=== PATIENT | female | born 1995 ===

== ENCOUNTER 2017-07-06 07:30 | Day surgery (SDC) | payer OTHER ==
[2017-06-28 08:47] VITALS: BMI 17.8
[2017-07-06] MEDS ORDERED: Lactated Ringer's 1,000 ML IV ONE ×2 (07:45→08:40)
[2017-07-06] MEDS ORDERED: Midazolam 2 MG/2 ML VIAL ONE (07:45)
[2017-07-06] MEDS ORDERED: Bupivacaine HCl 0.25% PF (10 ml) Inj ONE (07:45)
[2017-07-06] MEDS ORDERED: Propofol 10 mg/ml Inj (20 ML) ONE (07:45)
[2017-07-06] MEDS ORDERED: cefOXitin IV 1 gm in Dextrose 0 GM/0 ML BAG IVPB ONE (07:45)
[2017-07-06] MEDS ORDERED: Rocuronium 10 mg/ml (5 ml) ONE (07:46)
[2017-07-06] MEDS ORDERED: cefOXitin IV 2 gm in Dextrose 2 GM/50 ML BAG IVPB ONE (07:55)
[2017-07-06] MEDS ORDERED: Neostigmine Methylsulfate 3mg/3ml Syringe IV ONE (08:36)
[2017-07-06] MEDS ORDERED: HYDROmorphone 0.5 mg/0.5 ml ISec IVP PRN (08:54)
[2017-07-06 10:06] VITALS: O2SAT 99
[2017-07-06 11:45] VITALS: BP 100/52; PULSE 89; RESP 18; TEMP 98.6
--- NOTE | 2017-07-07 09:18 | OP ---
PROCEDURE DATE: 07/06/2017 PREOPERATIVE DIAGNOSES: 1. Left dermoid cyst. 2. Pelvic pain. 3. Menorrhagia. POSTOPERATIVE DIAGNOSES: 1. Endometriosis. 2. Left endometrioma. 3. Right hydrosalpinx. FINDINGS: Right perifimbrial adhesions with a right mild hydrosalpinx. The patient also has extensive posterior cul-de-sac endometriotic implant. She has 3-cm left endometrioma with chocolate material, which was resected. Right ovary is normal. Uterus is normal size. The patient endometrial curettage. SURGEON: Dr. David Tanner. PROCEDURE: 1. Laparoscopy. 2. Left ovarian cystectomy. 3. Fulguration of endometriosis. 4. Fimbrioplasty. 5. D and C of the uterus. ANESTHESIA: General. ESTIMATED BLOOD LOSS: Less than 1 mL. COMPLICATIONS: None. DESCRIPTION OF PROCEDURE: After the risks, benefits and alternatives of the planned procedures including, but not limited to infection, hemorrhage, deep vein thrombosis, atelectasis, pneumonia, pulmonary embolism, damage to bladder, damage to the ureter, renal insufficiency, renal failure, wound infection, wound dehiscence, incisional hernia, keloid formation, damage to large and small intestine, damage to the inferior vena cava and the aorta requiring extensive repair, anesthesia complications, electrolyte imbalance, possibility of , fluid overload, cerebral edema, embolism, and other complications that were discussed, but are not listed above have been explained to the patient and all her questions answered. Informed consent was obtained. The patient was taken to the operating room in a stable condition. Under a suitable level of general anesthesia, she was prepped and draped in a sterile fashion after having been placed in a dorsal lithotomy position. A 5-mm puncture site was made through the umbilicus through which a 5 mm puncture site was made through the umbilicus through which a Verses needle was inserted and pneumoperitoneum was relieved which was created. The Verses needle was removed and replaced by 5-mm trocar and sleeve. A 5-mm puncture site was made 3 finger breadths above the pubic symphysis through which 5-mm trocar and sleeve was inserted and another 5-mm puncture site was made in the through which a 5-mm trocar and sleeve was inserted. Elliptical incision was made over the left ovarian cyst, and the cyst line was then removed. Fluid from the cyst was drained and submitted for cytology. Posterior cul-de-sac endometriotic implant was then fulgurated. Right perifimbrial adhesions were released using Endoshear users to perform a fimbrioplasty. At the end of the procedure, peritoneal cavity was irrigated using copious amounts of saline. The saline was evacuated. Suprapubic and right sleeves were removed under laparoscopic guidance, abdomen was deflated of all carbon dioxide and the umbilicus sleeve was removed under laparoscopic guidance. Skin incisions were then closed using 4-0 Monocryl. Sponge, needle and instrument counts were correct x2. There were no complications. David Tanner MD
== END 2017-07-06 13:05 | disposition home or self-care (01) ==
LOC: C.SDS 07:30
PROVIDERS: ATTEND Obstetrics & Gynecology Reproductive Endocrinology
DX: D27.1 Benign neoplasm of left ovary (principal); N80.3 Endometriosis of pelvic peritoneum; N70.11 Chronic salpingitis
CPT/HCPCS: 36415; 58120; 58662; 58672; 86850; 86900; 88104; 88305; J0694; J1100; J1170; J2250; J2704; J2710; J3010; J7120

== ENCOUNTER 2017-09-25 17:21 | Emergency (ER) | payer OTHER ==
[2017-09-25 17:21] VITALS: BMI 17.8
[2017-09-25 18:05] LABS: RBC URINE 1 /hpf (0-3); URINE BACTERIA OCC (<OCC); URINE BILIRUBIN NEGATIVE (NEGATIVE); URINE BLOOD NEGATIVE (NEGATIVE); URINE COLOR Yellow (YELLOW); URINE GLUCOSE (UA) NORMAL (Normal); URINE KETONE NEGATIVE (NEGATIVE); URINE LEUKOCYTE ESTERASE NEG Leu/uL (Negative); URINE PROTEIN 1+ mg/dL (NEGATIVE); WBC URINE 2 /hpf (0-5)
--- NOTE | 2017-09-25 18:25 | C.PDOC ---
Time Seen by Provider: 09/25/17 17:42 Chief Complaint (Nursing): Female Genitourinary Past Medical History - Medical History PMH: Asthma, Gastritis, Hiatal Hernia Surgical History: Appendectomy (2011), Endoscopy Family History: States: Unknown Family Hx - Social History Hx Tobacco Use: No Hx Alcohol Use: No Hx Substance Use: No - Immunization History Hx Tetanus Toxoid Vaccination: Yes Hx Influenza Vaccination: No Hx Pneumococcal Vaccination: No Disposition - Disposition Referrals: David Tanner MD [Staff Provider] - Disposition: HOME/ ROUTINE Disposition Time: 18:23 Condition: STABLE Additional Instructions: Ms. Reyna, thank you for letting us take care of you today. Return to the ER if your symptoms worsen, or if any problems. Take the medication listed below as prescribed. Follow up with your vibration technician next week for a re-evaluation. We will contact you if any of your culture results/test results are positive. Prescriptions: Ibuprofen [Motrin] 1 tab PO TID PRN #30 tab PRN Reason: Pain Instructions: Pelvic Pain (ED), Vulvovaginal Candidiasis (ED) Forms: [employer] (Citizen [place]), General Discharge Instructions Print Language: MONGOLIAN - POA Present On Arrival: None - Clinical Impression Clinical Impression: Pelvic pain, Yeast infection
[2017-09-25 18:26] VITALS: BP 117/81; RESP 18; TEMP 97.9; O2SAT 100
[2017-09-25 18:30] VITALS: PULSE 107
== END 2017-09-25 18:42 | disposition home or self-care (01) ==
LOC: C.ER 17:21
DX: R10.2 Pelvic and perineal pain (principal); B37.9 Candidiasis, unspecified

== ENCOUNTER 2018-01-08 09:59 | Emergency (ER) | payer OTHER ==
[2018-01-08 10:00] VITALS: BMI 17.8
[2018-01-08 10:12] VITALS: TEMP 97.8; O2SAT 100
[2018-01-08 11:04] LABS: SQUAMOUS EPITHIAL 4 /hpf (0-5); URINE BILIRUBIN NEGATIVE (NEGATIVE); URINE BLOOD NEGATIVE (NEGATIVE); URINE CLARITY Hazy (Clear); URINE COLOR Yellow (YELLOW); URINE GLUCOSE (UA) NORMAL (Normal); URINE LEUKOCYTE ESTERASE NEG Leu/uL (Negative); URINE PROTEIN NEGATIVE (NEGATIVE); URINE UROBILINOGEN NORMAL mg/dL (0.2-1.0)
--- NOTE | 2018-01-08 11:07 | C.PDOC ---
History Of Present Illness 22 year old female, currently 9 weeks (), presents to the ED for evaluation of suprapubic discomfort, nausea and dysuria which began yesterday. Patient also admits she has thin, clear vaginal discharge which has been present throughout the course of her . She was seen by her refractory repairer; most recent visit was last week and her ultrasound was "normal". Patient denies fever, vomiting, diarrhea, hematuria, vaginal bleeding. Time Seen by Provider: 01/08/18 10:22 Chief Complaint (Nursing): Abdominal Pain History Per: Patient History/Exam Limitations: no limitations Onset/Duration Of Symptoms: Hrs Current Symptoms Are (Timing): Still Present Severity: Mild Location Of Pain/Discomfort: Suprapubic Radiation Of Pain To:: None Quality Of Discomfort: "Pain" Associated Symptoms: Nausea. denies: Fever, Vomiting, Diarrhea Additional History Per: Patient Abnormal Vaginal Bleeding: No Past Medical History Reviewed: Historical Data, Nursing Documentation, Vital Signs Vital Signs: Last Vital Signs Temp 97.8 F 01/08/18 10:11 Pulse 76 01/08/18 14:02 Resp 20 01/08/18 14:02 BP 100/64 01/08/18 14:02 Pulse Ox 100 01/08/18 14:02 - Medical History PMH: Asthma, Gastritis, Hiatal Hernia Surgical History: Appendectomy (2011), Endoscopy Family History: States: Diabetes - Social History Hx Tobacco Use: No Hx Alcohol Use: No Hx Substance Use: No - Immunization History Hx Tetanus Toxoid Vaccination: Yes Hx Influenza Vaccination: No Hx Pneumococcal Vaccination: No Review Of Systems Except As Marked, All Systems Reviewed And Found Negative. Constitutional: Negative for: Fever, Chills Cardiovascular: Negative for: Chest Pain Respiratory: Negative for: Shortness of Breath Gastrointestinal: Positive for: Nausea, Abdominal Pain (suprapubic ). Negative for: Vomiting, Diarrhea Genitourinary: Positive for: Vaginal Discharge (mild thin whitish/clear ( chronci throughout )). Negative for: Vaginal Bleeding Skin: Negative for: Rash Physical Exam - Physical Exam Appears: Well, Non-toxic, No Acute Distress Skin: Normal Color, Warm, Dry Eye(s): bilateral: Normal Inspection Oral Mucosa: Moist Neck: Supple Cardiovascular: Rhythm Regular Respiratory: Normal Breath Sounds, No Rales, No Rhonchi, No Wheezing Gastrointestinal/Abdominal: Normal Exam, Bowel Sounds, Soft, No Tenderness Back: Normal Inspection, No CVA Tenderness Extremity: Normal ROM Neurological/Psych: Oriented x3 ED Course And Treatment - Laboratory Results Result Diagrams: 01/08/18 11:46 01/08/18 11:46 O2 Sat by Pulse Oximetry: 100 (on RA ) Pulse Ox Interpretation: Normal - CT Scan/US transvaginal US Other Rad Studies (CT/US): Read By Radiologist, Radiology Report Reviewed CT/US Interpretation: Accession No. : [id number]. Patient Name / ID : ED Silva / [id number]. Exam Date : 01/08/2018 12:26:00 ( Approved ). Study Comment : Sex / Age : F / 22Y. Creator : Amalia Mata MD. Dictator : Amalia Mata MD. Transition Lead : Brake Repair Mechanic : Amalia Mata MD. Approver2 : Report Date : 01/08/2018 13:41:35. My Comment : . PROCEDURE: OB Pelvic Ultrasound. HISTORY: Pelvic pain. COMPARISON: None available. FINDINGS: UTERUS: Single Live intrauterine gestation. CRL measures 3.35 cm equivalent to 10 weeks and 2 days of gestational age. Gestational sac diameter measures 5.29 cm equivalent to 11 weeks and 1 day of gestational age. age (Ultrasound estimated): 10 weeks and 5 days. Date of delivery (Ultrasound estimated) : 08/01/2018. Heart rate: 162 bpm. Michelle-gestational hemorrhage: None. Uterus measures 14.5 x 6.5 x 8.7 cm. No mass. CERVIX: Long and closed. No cervical abnormality seen. RIGHT OVARY: Measures 4.7 x 3.0 x 5.6 cm. No mass. Normal flow. There are 2 simple cysts measuring 3.7 x 2.1 x 4.3 cm and 2.7 x 1.9 x 2.2 cm. LEFT OVARY: Measures 3.5 x 1.6 x 3.1 cm. No mass. Normal flow. FREE FLUID: None. OTHER FINDINGS: None. IMPRESSION: Single live intrauterine gestation with mean gestational age of 10 weeks and 5 days. The estimated date of delivery by ultrasound is . The ultrasound dates correspond with the clinical dates. Two simple cysts in the right ovary, the larger measures 4.3 cm. Progress Note: UA ordered and reviewed, negative for UTI. Bloodwork, OB Transvaginal US ordered and reviewed. Patient given IV NS bolus. Reevaluation Time: 14:00 Reassessment Condition: Improved (On reassessment, patient is resting comfortably, in no pain/distress. On exam, abdomen is soft and nontender. US shows 10wk 4 day IUP and right ovarian cysts. Patient is comfortable being discharged home, was instructed to follow up with refractory repairer wihtin 1 week. She understands she should return to ED if symptoms worsen.) Disposition Counseled Patient/Family Regarding: Studies Performed, Diagnosis, Need For Followup - Disposition Referrals: Nicola Damon MD [Medical Doctor] - Disposition: HOME/ ROUTINE Disposition Time: 14:00 Condition: STABLE Additional Instructions: FOLLOW UP WITH YOUR SPORT SHOE SPIKE ASSEMBLER WITHIN 1 WEEK RETURN TO EMERGENCY ROOM IF SYMPTOMS WORSEN SEGUIMIENTO CON TU OB / YARDER ENGINEER DENTRO DE 1 SEMANA REGRESE AL BARBARA DE EMERGENCIA SI LOS SNTOMAS EMPEORAN Instructions: Symptoms, Acute Pelvic Pain (DC) Forms: [facility] (Cypriot), Work Excuse Print Language: IRANIAN - POA Present On Arrival: None - Clinical Impression Clinical Impression: Pelvic pain affecting , Ovarian cyst - Scribe Statement The provider has reviewed the documentation as recorded by the Scribe (Bridgette Moulton) Provider Attestation: All medical record entries made by the Scribe were at my direction and personally dictated by me. I have reviewed the chart and agree that the record accurately reflects my personal performance of the history, physical exam, medical decision making, and the department course for this patient. I have also personally directed, reviewed, and agree with the discharge instructions and disposition.
[2018-01-08] MEDS ORDERED: Sodium Chloride 0.9% 1,000 ML IV ONE (11:35)
[2018-01-08 11:53] LABS: BASO % 0.5 % (0.0-2.0); EOS # 0.1 K/uL (0.0-0.7); EOS % 1.1 % (0.0-4.0); HEMOGLOBIN 10.8 g/dL (11.0-16.0); LYMPH # 1.5 K/uL (1.0-4.3); LYMPH % 17.5 % (20.0-40.0); MEAN CELL VOLUME 81.4 fL (81.0-99.0); MEAN CORPUSCULAR HEMOGLOBIN 27.3 pg (27.0-31.0); MEAN CORPUSCULAR HGB CONC 33.5 g/dL (33.0-37.0); MEAN PLATELET VOLUME 10.5 fL (7.2-11.7); MONO # 0.8 K/uL (0.0-0.8); MONO % 8.5 % (0.0-10.0); NEUT # 6.4 K/uL (1.8-7.0); NEUT % 72.4 % (50.0-75.0); RBC 3.95 Mil/uL (3.80-5.20); RED CELL DISTRIBUTION WIDTH 16.5 % (11.5-14.5); WHITE BLOOD COUNT 8.8 K/uL (4.8-10.8)
[2018-01-08] MEDS ORDERED: Sodium Chloride 0.9% 1,000 ML ONE (11:53)
[2018-01-08 12:12] LABS: ALB/GLOB RATIO 1.1 (1.0-2.1); ALBUMIN 3.5 g/dL (3.5-5.0); ALT/SGPT 24 U/L (9-52); AST/SGOT 17 U/L (14-36); BLOOD UREA NITROGEN 8 mg/dL (7-17); CALCIUM 8.5 mg/dl (8.6-10.4); GFR AFRICAN-AMERICAN > 60; GFR NON-AFRICAN AMERICAN > 60
--- NOTE | 2018-01-08 13:43 | US ---
PROCEDURE: OB Pelvic Ultrasound HISTORY: Pelvic pain COMPARISON: None available. FINDINGS: UTERUS: Single Live intrauterine gestation. CRL measures 3.35 cm equivalent to 10 weeks and 2 days of gestational age. Gestational sac diameter measures 5.29 cm equivalent to 11 weeks and 1 day of gestational age. age (Ultrasound estimated): 10 weeks and 5 days. Date of delivery (Ultrasound estimated) : 08/01/2018. Heart rate: 162 bpm. Michelle-gestational hemorrhage: None. Uterus measures 14.5 x 6.5 x 8.7 cm. No mass CERVIX: Long and closed. No cervical abnormality seen. RIGHT OVARY: Measures 4.7 x 3.0 x 5.6 cm. No mass. Normal flow. There are 2 simple cysts measuring 3.7 x 2.1 x 4.3 cm and 2.7 x 1.9 x 2.2 cm. LEFT OVARY: Measures 3.5 x 1.6 x 3.1 cm. No mass. Normal flow. FREE FLUID: None. OTHER FINDINGS: None. IMPRESSION: Single live intrauterine gestation with mean gestational age of 10 weeks and 5 days. The estimated date of delivery by ultrasound is 08/01/2018. The ultrasound dates correspond with the clinical dates. Two simple cysts in the right ovary, the larger measures 4.3 cm.
[2018-01-08 14:03] VITALS: BP 100/64; PULSE 76; RESP 20
== END 2018-01-08 14:13 | disposition home or self-care (01) ==
LOC: C.ER 09:59
DX: O34.81 Maternal care for other abnormalities of pelvic organs, first trimester (principal); N83.209 Unspecified ovarian cyst, unspecified side; O26.891 Other specified pregnancy related conditions, first trimester; R10.2 Pelvic and perineal pain; Z3A.10 10 weeks gestation of pregnancy
CPT/HCPCS: 76801; 80053; 81001; 85025; 87086; 96360; 99284; J7040

== ENCOUNTER 2019-01-27 08:58 | Emergency (ER) | payer OTHER ==
[2019-01-27 09:02] VITALS: BMI 19.2
[2019-01-27 09:07] VITALS: O2SAT 100
--- NOTE | 2019-01-27 10:15 | RAD ---
Date of service: 01/27/2019 HISTORY: Cough COMPARISON: Comparison chest 12/04/2016 TECHNIQUE: Chest PA and lateral views FINDINGS: LUNGS: No active pulmonary disease. PLEURA: No significant pleural effusion identified. No pneumothorax apparent. CARDIOVASCULAR: No aortic atherosclerotic calcification present. Normal cardiac size. No pulmonary vascular congestion. OSSEOUS STRUCTURES: No significant abnormalities. VISUALIZED UPPER ABDOMEN: Normal. OTHER FINDINGS: None. IMPRESSION: No active disease.
[2019-01-27 10:39] LABS: INFLUENZA A B NEGATIVE FOR FLU A/B (NEGATIVE)
--- NOTE | 2019-01-27 10:52 | C.PDOC ---
History Of Present Illness 23 y/o F c no PMHx p/w body aches, cough, yellow sputum, throat pain, congestion, x 5 days. Reports fever initially now resolved. Denies dyspnea, vomiting, dysuria, recent travel. Time Seen by Provider: 01/27/19 09:13 Chief Complaint (Nursing): Cough, Cold, Congestion Past Medical History Vital Signs: Last Vital Signs Temp 98.1 F 01/27/19 09:02 Pulse 82 01/27/19 09:02 Resp 16 01/27/19 09:02 BP 113/76 01/27/19 09:02 Pulse Ox 100 01/27/19 09:02 - Medical History PMH: Asthma, Gastritis, Hiatal Hernia Surgical History: Appendectomy (2011), Endoscopy Family History: States: Unknown Family Hx, Diabetes - Social History Hx Tobacco Use: No Hx Alcohol Use: No Hx Substance Use: No - Immunization History Hx Tetanus Toxoid Vaccination: Yes Hx Influenza Vaccination: No Hx Pneumococcal Vaccination: No Review Of Systems Except As Marked, All Systems Reviewed And Found Negative. Cardiovascular: Negative for: Chest Pain Physical Exam - Physical Exam Additional Physical Exam Comments: gen nad head nc/at eyes perrl ent congested, pharynx erythematous without exudates neck supple, no rigidity chest no tenderness cv reg rate lungs cta b/l abd soft, nt back no cva tenderness extremities no deformity skin no rash neuro alert, no focal deficit ED Course And Treatment O2 Sat by Pulse Oximetry: 100 Medical Decision Making Medical Decision Making: CXR no pneumonia. Rapid strep and influenza negative. Continue supportive care, f/u primary care, return to ED for worsening pain, fever, vomiting, dyspnea, or any other problem. Disposition - Disposition Referrals: [facility] [Outside] Disposition: HOME/ ROUTINE Disposition Time: 10:51 Condition: GOOD Prescriptions: Benzonatate [Tessalon Perles] 200 mg PO TID #30 sgl Ibuprofen [Motrin] 1 tab PO Q6 #30 tab Instructions: Upper Respiratory Infection (ED) Forms: [facility] (Hebrew), Work Excuse - Clinical Impression Clinical Impression: Upper respiratory infection
[2019-01-27 11:01] VITALS: BP 112/82; PULSE 81; RESP 18; TEMP 98.5
== END 2019-01-27 11:01 | disposition home or self-care (01) ==
LOC: C.ER 08:58
DX: J06.9 Acute upper respiratory infection, unspecified (principal)
CPT/HCPCS: 71046; 87070; 87430; 87804; 96372; 99283; J1885